=== PATIENT | female | born 1995 | race American Indian/Alaskan Native ===

== ENCOUNTER 2024-07-03 19:15 | Emergency (ER) | payer MEDICAID, SELFPAY ==
--- NOTE | 2024-07-03 19:25 | XR_ITS ---
Examination: Complete OB ultrasound greater than 14 weeks Date and time of exam: July 03, 2024 1935 hrs. Indications: No care, labor evaluation Findings: Viable intrauterine single fetus with single amniotic sac presentation cephalic spine maternal right Cardiac motion 140 BPM Placenta anterior grade 2 Umbilical cord insertion seen 3 vessel Amniotic fluid index 17.7 cm Cervix 3.4 cm Ovaries obscured by bowel gas. Composite estimated gestational age based on BPD, head circumference, abdominal circumference, femur length is 28 weeks 2 days Estimated weight 1139 g. Survey of intracranial anatomy, spinal anatomy, abdominal anatomy, four-chamber heart performed with no abnormalities identified. Impression: An intrauterine gestation cephalic presentation Estimated gestational age 28 weeks 2 days.
[2024-07-03 19:26] VITALS: BP 116/68; PULSE 102; RESP 18; TEMP 36.6; O2SAT 99
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
[2024-07-03 19:33] VITALS: RESP 18; O2SAT 97
[2024-07-03 20:38] LABS: Basophils # (Auto) 0.1 Thou/mm3 (0.0-0.2); Basophils % (Auto) 0 % (0-2.5); Eosinophils % (Auto) 0 % (0-10); Hematocrit 29.7 % (36.0-46.0); Immature Granulocytes % (Auto) 1 % (0-0); Immature Granulocytes Auto 0.11 Thou/mm3 (0.00-0.00); Lymphocytes # (Auto) 2.2 Thou/mm3 (1.0-4.8); Lymphocytes % (Auto) 14 % (10-50); Mean Corpuscular HGB Conc 33.7 g/dl (31.0-37.0); Mean Corpuscular Hemoglobin 32.3 pg (25.0-35.0); Mean Corpuscular Volume 96 fL (80-100); Monocytes # (Auto) 1.1 Thou/mm3 (0.0-0.8); Monocytes % (Auto) 7 % (0-12); Neutrophils # (Auto) 11.7 Thou/mm3 (1.8-7.7); Neutrophils % (Auto) 77 % (37-80); Nucleated Red Blood Cell % 0 /100 WBC (0); Platelet Count 391 Thou/mm3 (140-440); RDW Standard Deviation 44.8 fL (36.4-46.3); White Blood Count 15.2 Thou/mm3 (3.6-11.0)
[2024-07-03 21:02] LABS: Albumin, Serum 3.8 gm/dL (3.5-5.0); Albumin/Globulin Ratio 1.7 (1.2-2.2); Alkaline Phosphatase 77 U/L (46-116); Anion Gap 7 (7-16); Aspartate Amino Transferase 15 U/L (0-34); BUN/Creatinine Ratio 10 Ratio (12-20); Bilirubin,Total 0.2 mg/dL (0.3-1.2); Blood Urea Nitrogen 6 mg/dL (9-23); Calcium 8.3 mg/dL (8.3-10.6); Calcium (Corrected) 8.5 mg/dL (8.5-10.1); Carbon Dioxide 24.5 mMol/L (20.0-31.0); Chloride 106 mMol/L (98-107); Creatine Kinase 145 U/L (34-171); Creatinine (Component) 0.6 mg/dL (0.6-1.3); Estimated Creatinine Clearance 136.9 mL/min (>60); Globulin 2.2 gm/dL (2.3-3.5); Glucose 83 mg/dL (74-106); Osmolality,Calculated 270 (275-295); Potassium 4.1 mMol/L (3.4-5.1); Sodium 137 mMol/L (136-145); eGFR > 60 See Note
[2024-07-03 21:03] LABS: Collection Type, Urine Clean Catch
[2024-07-03 21:08] VITALS: BP 121/69; PULSE 90; RESP 17; TEMP 36.7; O2SAT 99
[2024-07-03 21:12] LABS: Alanine Aminotransferase 11 U/L (10-49)
[2024-07-03] MEDS: SODIUM CHLORIDE 0.9% 1000 ML 1,000 ML 999 ML IV (21:15)
[2024-07-03 21:20] LABS: Bilirubin,Urine Negative (Negative); Blood,Urine Negative (Negative); Clarity,Urine Turbid (Clear/Hazy); Color,Urine Lt-Yellow (Lt Yel-Yel); Glucose, Urine Trace (Negative); Ketones,Urine Negative (Negative); Leukocyte Esterase,Urine Negative (Negative); Nitrite,Urine Positive (Negative); PH,Urine 6.5 (5.0-7.0); Protein,Urine Negative (Neg - Trace); RBC,Urine 2 /hpf (0-3); Specific Gravity,Urine 1.008 (1.001-1.035); Squamous Epithelial Cell,Urine 1 /hpf (0-5); Urobilinogen,Urine Negative mg/dL (0.0-1.0); WBC,Urine 2 /hpf (0-5)
[2024-07-03 21:23] LABS: Culture Indicated,Urine Yes
== END 2024-07-03 23:30 | disposition home or self-care (01) ==
PROVIDERS: Registered Nurse General Practice; Emergency Provider Emergency Medicine
DX: O26.813 Pregnancy related exhaustion and fatigue, third trimester (principal); D72.829 Elevated white blood cell count, unspecified; Z3A.28 28 weeks gestation of pregnancy
CPT/HCPCS: 36415; 76805; 80053; 81001; 82550; 85025; 87086; 96360; 99284; J7030

== ENCOUNTER → 2024-07-05 05:15 | Emergency (ER) | payer MEDICAID, SELFPAY ==
[2024-07-05] VITALS (10 sets, daily range): BP systolic 103–134; BP diastolic 51–85; PULSE 83–111; RESP 15–100; TEMP 36.8–36.9; O2SAT 98–99; BMI 27.6
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
--- NOTE | 2024-07-05 03:39 | PC.NURSE ---
PT SENT TO OB FOR CLEARANCE FIRST
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
[2024-07-05 06:03] LABS: Basophils % (Auto) 0 % (0-2.5); Eosinophils % (Auto) 0 % (0-10); Hematocrit 28.5 % (36.0-46.0); Hemoglobin 9.7 g/dL (12.0-16.0); Immature Granulocytes % (Auto) 1 % (0-0); Immature Granulocytes Auto 0.07 Thou/mm3 (0.00-0.00); Lymphocytes # (Auto) 1.9 Thou/mm3 (1.0-4.8); Lymphocytes % (Auto) 13 % (10-50); Mean Corpuscular Hemoglobin 31.8 pg (25.0-35.0); Mean Corpuscular Volume 93 fL (80-100); Monocytes # (Auto) 0.9 Thou/mm3 (0.0-0.8); Monocytes % (Auto) 6 % (0-12); Neutrophils % (Auto) 80 % (37-80); Nucleated Red Blood Cell % 0 /100 WBC (0); Platelet Count 409 Thou/mm3 (140-440); RDW Standard Deviation 44.5 fL (36.4-46.3); Red Blood Count 3.05 Miln/mm3 (4.00-5.20)
[2024-07-05 06:26] LABS: Glucose Estimated Average 97 mg/dL (80-131)
[2024-07-05 06:34] LABS: Hepatitis B Surface Antigen Non Reactive (Non React); Rubella, IgG Antibody Reactive (Immune)
[2024-07-05 06:38] LABS: Syphilis Nonreactive (Nonreactive)
[2024-07-05 08:00] LABS: HIV (1&2) Antibody Rapid Non-Reactive
== END ==
LOC: S4SX 05:00 → SERX 05:21
PROVIDERS: Obstetrics & Gynecology; Emergency Provider Emergency Medicine
DX: Z02.89 Encounter for other administrative examinations (principal); O9A.212 Injury, poisoning and certain other consequences of external causes complicating pregnancy, second trimester; R10.9 Unspecified abdominal pain; O99.332 Smoking (tobacco) complicating pregnancy, second trimester; Z3A.27 27 weeks gestation of pregnancy; Z65.3 Problems related to other legal circumstances; F17.200 Nicotine dependence, unspecified, uncomplicated; W19.XXXA Unspecified fall, initial encounter; Y04.0XXA Assault by unarmed brawl or fight, initial encounter
CPT/HCPCS: 36415; 59025; 83036; 85025; 86703; 86762; 86780; 86850; 86870; 86900; 86901; 87340; 99281

== ENCOUNTER 2024-09-18 13:10 | Inpatient (IN) | payer MEDICAID, SELFPAY ==
[2024-09-18] VITALS (36 sets, daily range): BP systolic 90–121; BP diastolic 41–76; PULSE 68–110; RESP 12–99; TEMP 36.1–36.6; O2SAT 96–100; BMI 29.9
[2024-09-18 14:01] LABS: Basophils # (Auto) 0.1 Thou/mm3 (0.0-0.2); Basophils % (Auto) 0 % (0-2.5); Eosinophils % (Auto) 0 % (0-10); Hematocrit 29.2 % (36.0-46.0); Hemoglobin 9.9 g/dL (12.0-16.0); Immature Granulocytes % (Auto) 1 % (0-0); Immature Granulocytes Auto 0.14 Thou/mm3 (0.00-0.00); Lymphocytes # (Auto) 1.6 Thou/mm3 (1.0-4.8); Lymphocytes % (Auto) 7 % (10-50); Mean Corpuscular HGB Conc 33.9 g/dl (31.0-37.0); Mean Corpuscular Hemoglobin 28.1 pg (25.0-35.0); Mean Corpuscular Volume 83 fL (80-100); Monocytes # (Auto) 1.7 Thou/mm3 (0.0-0.8); Monocytes % (Auto) 7 % (0-12); Neutrophils # (Auto) 20.2 Thou/mm3 (1.8-7.7); Neutrophils % (Auto) 85 % (37-80); Nucleated Red Blood Cell % 0 /100 WBC (0); Platelet Count 387 Thou/mm3 (140-440); RDW Standard Deviation 45.4 fL (36.4-46.3); Red Blood Count 3.52 Miln/mm3 (4.00-5.20); White Blood Count 23.7 Thou/mm3 (3.6-11.0)
[2024-09-18 14:27] LABS: Fibrinogen 523 mg/dL (175-375); INR 0.9 (0.9-1.3); Partial Thromboplastin Time 30.3 Seconds (22.0-36.0); Prothrombin Time 9.8 Seconds (9.0-12.2)
[2024-09-18 14:30] LABS: Alanine Aminotransferase < 7 U/L (10-49); Albumin, Serum 3.6 gm/dL (3.5-5.0); Albumin/Globulin Ratio 1.4 (1.2-2.2); Alkaline Phosphatase 207 U/L (46-116); Anion Gap 6 (7-16); Aspartate Amino Transferase 12 U/L (0-34); BUN/Creatinine Ratio 10 Ratio (12-20); Bilirubin,Total 0.5 mg/dL (0.3-1.2); Blood Urea Nitrogen 7 mg/dL (9-23); Calcium 8.1 mg/dL (8.3-10.6); Calcium (Corrected) 8.4 mg/dL (8.5-10.1); Chloride 109 mMol/L (98-107); Creatinine (Component) 0.7 mg/dL (0.6-1.3); Globulin 2.5 gm/dL (2.3-3.5); Glucose 93 mg/dL (74-106); LDH (Lactate Dehydrogenase) 193 U/L (120-246); Osmolality,Calculated 269 (275-295); Sodium 136 mMol/L (136-145); Total Protein 6.1 gm/dL (5.7-8.2); Uric Acid 3.9 mg/dL (3.1-7.8); eGFR > 60 See Note
[2024-09-18 14:37] LABS: Syphilis Nonreactive (Nonreactive)
[2024-09-18] MEDS: RINGERS LACTATED 1000 ML 1,000 ML 100 ML IV (14:39)
[2024-09-18 14:41] LABS: Amphetamine/Metham Scrn,Ur OB Negative (Negative); Benzoylecgonine Screen, Ur OB Negative (Negative); Opiate Screen,Urine OB Negative (Negative); THC Screen,Urine OB Positive (Negative)
[2024-09-18 14:42] LABS: THC U Confirm* See Sep Rpt
[2024-09-18] MEDS: ceFAZolin/D5W 2 GM IV 2 GM/100 ML BAG IV ×2 (14:50→21:11)
[2024-09-18] MEDS: FAMOTIDINE INJ 10 MG/ML VIAL 2 ML 20 MG IV (14:50)
[2024-09-18 14:51] LABS: HIV (1&2) Antibody Rapid Non-Reactive
[2024-09-18] MEDS: AZITHROMYCIN INJ 500 MG in SODIUM CHLORIDE 0.9% 250 ML 250 ML 250 MG IV (15:10)
[2024-09-18] MEDS: OXYTOCIN in NS 20 units 20 UNIT/1,000 ML BAG 125 UNIT IV (16:30)
--- NOTE | 2024-09-18 16:41 | ESHP_ITS ---
Documentation for date of: 09/18/24 OB Labor/Induct. HPI History of Present Illness Chief complaint: Labor : 4 Para: 3 Term pregnancies: 3 pregnancies: 1 Living children: 3 History of Abortions: Spontaneous and Elective: 0 History of Vaginal deliveries: 0 History of sections: Yes (x3) History of : No SHERRY: 09/17/24 Gestational Age (weeks): 40 Gestational Age (days): 1 History of present illness: The patient is a 29-year-old with a history of x 3 who presented to triage reporting active labor. She was 40 weeks and 1 day by LMP. She has been incarcerated for 3 months. She stated she did get care at the residential. Before she was incarcerated, she did not have any care. No records were available on presentation. She stated that she had a history of x 3 in the past, one of which was documented here at 34 weeks. Patient stated she might have broken her water at 10:00 PM 09/18/2019. When she presented she was painfully jasiel and having some early decelerations and was consented for a repeat low-transverse section. Of note the patient states that she has a history of meth use, cocaine use and alcohol use. She has multiple ER visits here for ETOH and drug abuse. She denies using since incarcerated three months ago. She admits to daily marijuana and states that she has been home for three days and that is all she has used. History of Present Dating criteria: based on LMP only Adequate Care: No ( Pt incarcerated last 3 months, no [facility] records) Ultrasounds: none Medical complications: other (history of ETOH, cocaine, methamphetamine, and marijuana use. UDS + for marijuana.) Labs Maternal Blood Type: O Pos Labs: Unknown: RPR, Hepatitis B, Rubella Titre, HIV, Chlamydia, Gonorrhea, Herpes Type 1, Herpes Type 2, Group Beta Strep and Covid-19 Past Medical History Surgical History SURGICAL: Positive Section (x3) Meds Home Medications and Allergies Allergies Allergy/AdvReac Type Severity Reaction Status Date / Time No Known Allergies Allergy Verified 09/18/24 13:35 OB Exam Physical Exam Vital signs: Temp Pulse Resp BP Pulse Ox O2 Del Method 97.4 F 79 20 111/63 99 Room Air 09/18/24 16:05 09/18/24 13:44 09/18/24 13:44 09/18/24 13:44 09/18/24 14:38 09/18/24 13:44 OB Results Labs 09/18/24 13:30 09/18/24 13:30 Labs: Short CBC 09/18/24 Range/Units 13:30 WBC 23.7 H (3.6-11.0) Thou/mm3 Hgb 9.9 L (12.0-16.0) g/dL Hct 29.2 L (36.0-46.0) % Plt Count 387 (140-440) Thou/mm3 BMP 09/18/24 13:30 Sodium 136 Potassium 4.0 Chloride 109 H Carbon Dioxide 21.0 BUN 7 L Creatinine 0.7 Glucose 93 Calcium 8.1 L Liver Function 09/18/24 Range/Units 13:30 Total Bilirubin 0.5 (0.3-1.2) mg/dL AST 12 (0-34) U/L ALT < 7 L (10-49) U/L Alkaline Phosphatase 207 H (46-116) U/L Albumin 3.6 (3.5-5.0) gm/dL OB Assessment & Plan Assessment and Plan (1) Cannabis abuse: Status: Acute Assessment and plan: commissioner of relocation services consult post . (2) Active labor at term: Status: Acute (3) Previous section: Status: Acute Assessment and plan: Consented for an emergent low-transverse section. care scant. The risks of the procedure were discussed including risk of bleeding infection, transfusion, damage to other organsorgans.
[2024-09-18 17:00] LABS: Collection Type, Urine Clean Catch
--- NOTE | 2024-09-18 17:02 | OBDSUM_ITS ---
Data ([facility]) Data Hx Section: Yes (x3) Maternal Blood Type: O Pos Rubella Titre: Unknown RPR: Unknown Labs: Unknown: RPR, Hepatitis B, HIV, Chlamydia, Gonorrhea, Herpes Type 1, Herpes Type 2 and Group Beta Strep : 4 Term: 3 : 1 Livin Abortions: Spontaneous & Theraputic: 0 Delivery Data ([facility]) Labor Data Initiation of labor: Spontaneous Induction/Augmentation Agent: None ROM date: 09/18/24 ROM time: 15:02 Amniotic membrane rupture type: Artificial Amniotic fluid description: Particulate Meconium and Foul Odor Delivery Data EDC: 09/17/24 EDC calculated by:: LMP Date of arrival to unit: 09/18/24 Time of arrival to unit: 13:02 Onset of labor date: 09/18/24 Onset of labor time: 13:10 Complete dilation date: 09/18/24 Complete dilation time: 15:02 delivery date: 09/18/24 Mackey delivery time: 15:02 Gestational age (weeks): 40 Gestational age (days): 1 Placenta delivery date: 09/18/24 Placenta delivery time: 15:02 Stage 1 total time: Labor - Stage 1 Duration 1 hours and 52 minutes Delivered by: Angeline Lemus ([facility]) Delivery nurse: [facility] nurse: Christie Antony RN Window And Door Installer at delivery: Yes Support person(s) at delivery: none Other staff at delivery: Elissa Dubose from [facility], Mello SABA, Stewart MONTELONGO, substation maintenance technician Katherine Delivery Method Delivery: Delivery Type: Repeat Presentation: Vertex Position: OA Anesthesia Type Primary Anesthesia: Spinal Secondary Anesthesia: None Delivery Room Medications Intrapartum Medications: Antibiotics Other Intrapartum Medications: Yes Post Delivery Medications N/A: No Placenta Placenta Delivery: Spontaneous Placenta Cultures Obtained: No Placenta Sent for Examination: Yes Cord Sample: Cord Blood Obtained, Cord Gases Arterial and Cord Gases Venous EBL Estimated blood loss (ml): 400 Umbilical Cord Umbilical Vessels: 3 Nuchal Cord: None Body Cord: None Additional Procedures See details on op report Complications Complications: None Data ([place]) Mackey Data 's gender: Male weight (gms): 2920 g Weight (pounds): 59 lbs and 5.6 ozs 1 minute: 8 5 minutes: 9 Additional Comments Additional comments: weight 2920 g. Entered incorrectly and cannot be corrected up above. Corresponds to 6 pounds 7 ounces. Not 59 pounds.
[2024-09-18 17:05] LABS: Bacteria,Urine Rare; Bilirubin,Urine Negative (Negative); Blood,Urine Negative (Negative); Clarity,Urine Clear (Clear/Hazy); Color,Urine Yellow (Lt Yel-Yel); Culture Indicated,Urine Not Indicated; Glucose, Urine Negative (Negative); Ketones,Urine 1+ (Negative); Leukocyte Esterase,Urine Negative (Negative); Nitrite,Urine Negative (Negative); Protein,Urine Trace (Neg - Trace); RBC,Urine 1 /hpf (0-3); Squamous Epithelial Cell,Urine 1 /hpf (0-5); Urobilinogen,Urine Negative mg/dL (0.0-1.0); WBC,Urine < 1 /hpf (0-5)
--- NOTE | 2024-09-18 17:23 | PD.GYNPROC ---
Operative Note - ACID MIXER Procedure Date of procedure: 09/18/24 Procedure Performed: Repeat low-transverse Section Indication: The patient is a 29-year-old -1-0-3 with no care except in alf for the last 3 months who presented to labor and delivery in active labor. By her LMP, she was 40 and 1 sevenths weeks . She had a history of x 3 in the past. She was painfully jasiel on presentation regularly every 3 to 4 minutes.FHTs were category 1 with some variable decelerations with contractions. The patient stated she might have ruptured her bag of water at 10 PM on 03/04. She was consented for a repeat CS in labor. Pre-Op diagnosis: 1. IUP 40 1/7 weeks by LMP 2. Active labor 3. Previous CS x 3 4. Surgical staff Operation Date: 09/18/24 15:15 <No data on this case meets the specified criteria>
[2024-09-18] MEDS: GENTAMICIN/NS 80 MG IVPB 80 MG/50 ML PIGGYBACK 100 MG IV (17:54)
--- NOTE | 2024-09-18 18:21 | ESOP_ITS ---
Operative Note - ELECTROPLATER HELPER Procedure Date of procedure: 09/18/24 Procedure Performed: Repeat low-transverse section Indication: The patient is a 29-year-old -1-0-3 status post x 3 who presented to labor and delivery in active labor. She was 40 1/7 weeks by her last menstrual period. She had very little care. She was incarcerated for 3 months of her she was only home for the last 2-3 days. We have no records available. According to ER visits, she has a history of cocaine abuse, alcohol abuse, methamphetamine abuse, and marijuana abuse. She states that since her incarceration she is only used marijuana the last 2 days. In triage she was found to be painfully jasiel every 3 to 4 minutes. heart tones were category 1. The baby did have some variable decelerations with contractions. She stated she might of broken her bag at 10 PM 09/17/2024. Pre-Op diagnosis: 1. Intrauterine at 40 and 1 sevenths weeks 2. Active labor 3. Previous x 3 4. Possible prolonged rupture of membranes 5. Inadequate care 6. History of polysubstance abuse Post-Op diagnosis: Same Anesthesia type: Spinal Procedure description: After obtaining informed consent, the patient was brought back to the operating room and spinal anesthesia administered. She was then prepped and draped in the dorsal supine position with a leftward tilt in a normal sterile fashion. A Edmondson catheter was inserted into the patient's bladder. The patient was given 2 g of Ancef by anesthesia. A Pfannenstiel skin incision was made with a scalpel through the patient's prior scar and carried down to the underlying fascia. The fascia was incised the midline, and the fascial incision extended laterally using Grande scissors. The superior aspect of the fascia was grasped with Iveth clamps and the underlying rectus muscles dissected off using blunt and sharp dissection. This was repeated in the inferior aspect the incision. The rectus muscle was in the midline and entered sharply with a scalpel. This was extended superiorly and inferiorly with good visualization of the bladder. The bladder blade was inserted and the uterus was incised in the low transverse fashion above the bladder reflection with a scalpel. The uterine incision was extended laterally using blunt dissection with the surgeon's fingers. The bag suresh was ruptured and foul smelling green particulate fluid was obtained. The bladder blade was removed and the infant was delivered atraumatically. The cord was clamped and cut and the was handed off to the waiting pediatric staff. Cord blood was collected. Cord gases were sent. The placenta was then manually removed and the uterus was exteriorized and cleared of all clots and debris. The uterine incision was closed with 0 Monocryl in a running motion. Excellent hemostasis was noted. The uterus was returned to the patient's abdominal cavity and copious irrigation carried out with warm normal saline. The uterine is reexamined several times and noted to hemostatic. After ensuring the rectus muscles were hemostatic, these were approximated in the midline using a running suture of 0 Monocryl. The fascia was closed with 0 Vicryl in a running fashion. The subcutaneous tissues were irrigated and found to be hemostatic. These were reapproximated using a running suture of 3-0 plain. The skin was closed with a subcuticular suture of 4-0 Monocryl. The patient tolerated the procedure well, sponge ,lap, instrument and needle counts were correct x 2. The patient went to the recovery area awake and in stable condition. The baby went to the NICU for observation secondary to possible exposure to chorioamnionitis. Fluids: crystalloid Fluid amount (mL): 3,000 Urine output (mL): 200 Specimen: other (Placenta) Implants: None Estimated blood loss (ml): 400 Findings: Liveborn male in the OA presentation with no nuchal cord and with thick meconium .Apgars were 8 and 9 weight was 2920 g or approximately 6 pounds 7 ounces the placenta was complete spontaneous meconium stained otherwise grossly normal. The fluid had a very foul odor suggestive of chorioamnionitis. Patient's fallopian tubes and uterus appeared grossly normal. The lower uterine segment was thin but there is very little scar tissue present in the patient's abdomen. Complications: none Surgical staff Operation Date: 09/18/24 15:15 <No data on this case meets the specified criteria> Stewart Leon CRNA Diagnosis Discharge Diagnosis (1) Previous section: Status: Acute (2) Active labor at term: Status: Acute (3) Cannabis abuse: Status: Acute (4) Chorioamnionitis, delivered, current hospitalization: Status: Acute Problem List Completed Was Problem List Reviewed/Reconciled?: Yes
[2024-09-18] MEDS: CLINDAMYCIN 900MG IVPB 900 MG in PRE-MIXED 1 BAG 50 MG IV (18:25)
[2024-09-18 20:21] LABS: Hepatitis B Surface Antigen Non Reactive (Non React); Rubella, IgG Antibody Reactive (Immune)
[2024-09-18] MEDS: HYDROcodone/APAP 5/325 TABLET 2 TAB PO (23:50)
[2024-09-19 00:30] VITALS: BP 124/74; PULSE 74; RESP 18; TEMP 36.6; O2SAT 95
[2024-09-19] MEDS: CLINDAMYCIN 900MG IVPB 900 MG in PRE-MIXED 1 BAG 50 MG IV ×3 (01:12→17:53)
[2024-09-19] MEDS: OXYTOCIN in NS 20 units 20 UNIT/1,000 ML BAG 125 UNIT IV (01:19)
[2024-09-19 04:00] VITALS: BP 110/67; PULSE 81; RESP 17; TEMP 36.3; O2SAT 96
[2024-09-19] MEDS: GENTAMICIN/NS 80 MG IVPB 80 MG/50 ML PIGGYBACK 100 MG IV ×2 (05:08→17:00)
[2024-09-19] MEDS: HYDROcodone/APAP 5/325 TABLET 2 TAB PO ×2 (05:51→14:07)
[2024-09-19] MEDS: ceFAZolin/D5W 2 GM IV 2 GM/100 ML BAG IV ×2 (05:51→22:06)
[2024-09-19 06:10] LABS: Basophils # (Auto) 0.1 Thou/mm3 (0.0-0.2); Basophils % (Auto) 0 % (0-2.5); Eosinophils % (Auto) 0 % (0-10); Immature Granulocytes % (Auto) 1 % (0-0); Immature Granulocytes Auto 0.12 Thou/mm3 (0.00-0.00); Lymphocytes # (Auto) 1.8 Thou/mm3 (1.0-4.8); Lymphocytes % (Auto) 9 % (10-50); Mean Corpuscular Hemoglobin 28.5 pg (25.0-35.0); Mean Corpuscular Volume 84 fL (80-100); Monocytes # (Auto) 1.2 Thou/mm3 (0.0-0.8); Monocytes % (Auto) 6 % (0-12); Neutrophils # (Auto) 17.1 Thou/mm3 (1.8-7.7); Neutrophils % (Auto) 84 % (37-80); Nucleated Red Blood Cell % 0 /100 WBC (0); Platelet Count 338 Thou/mm3 (140-440); RDW Standard Deviation 46.2 fL (36.4-46.3); Red Blood Count 2.98 Miln/mm3 (4.00-5.20); White Blood Count 20.3 Thou/mm3 (3.6-11.0)
[2024-09-19 06:26] LABS: Hemoglobin 8.5 g/dL (12.0-16.0)
[2024-09-19 08:30] VITALS: BP 123/77; PULSE 80; RESP 20; TEMP 36.2; O2SAT 88
[2024-09-19 08:35] VITALS: RESP 18; O2SAT 95
--- NOTE | 2024-09-19 08:47 | XR_ITS ---
Examination: AP chest single view TECHNIQUE: Sitting portable AP chest single view Exam date and time: September 19, 2024 0857 hours INDICATIONS: Shortness of breath today. FINDINGS: Pneumonia left base Normal heart size Right lung clear IMPRESSION: Pneumonia left base, differential would include aspiration pneumonia
[2024-09-19 10:00] LABS: Chlamydia trachomatis PCR Negative (Not Detect); Neisseria Gonorrhoeae DNA PCR Negative (Not Detect); Trichomonas Positive (Negative)
--- NOTE | 2024-09-19 11:31 | ESPR_ITS ---
RE: DENG QUINTANILLA : 1995 DATE OF SERVICE: 09/19/2024 S: Postoperative day #1, the patient reports cough and some shortness of breath with exertion. She denies any chest pain or palpitations. She reports she does not feel dizzy or lightheaded. She denies any excessive vaginal bleeding. She is tolerating a regular diet. She is voiding without difficulty. O: Vital Signs: Blood pressure 123/77, heart rate is 80, respirations 18, temperature is 97.2, and pulse ox is 95% on 2 L nasal cannula. Lungs: Scattered rhonchi and wheezes. Heart: Regular rate and rhythm. Abdomen: Dressing dry and intact. Fundus is firm. Extremities: Nontender. No edema. LABORATORY DATA: Hemoglobin pre-delivery is 9.9, post-delivery is 8.5. A: 1. Postop day #1, status post delivery. 2. Chorioamnionitis. 3. Respiratory Infection 4. Anemia but hemodynamically stable with no ongoing bleeding. P: The patient continues on Ancef, gentamicin, and clindamycin. Chest x-ray for shortness of breath and pulse ox low on room air. Remove dressing, encourage ambulation, support, and social service support. DT: 09:15:41 TT: 11:30:00 Ref: [id number] - TID: [id number] [facility]
[2024-09-19 12:05] VITALS: BP 137/79; PULSE 80; RESP 18; TEMP 36.3; O2SAT 96
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
[2024-09-19 20:00] VITALS: BP 128/80; PULSE 90; RESP 19; TEMP 36.8; O2SAT 97
[2024-09-20] MEDS: CLINDAMYCIN 900MG IVPB 900 MG in PRE-MIXED 1 BAG 50 MG IV ×2 (01:19→09:20)
[2024-09-20 03:58] VITALS: BP 125/77; PULSE 97; RESP 18; TEMP 36.3; O2SAT 99
[2024-09-20] MEDS: GENTAMICIN/NS 80 MG IVPB 80 MG/50 ML PIGGYBACK 100 MG IV (05:20)
[2024-09-20 06:06] LABS: Basophils # (Auto) 0.1 Thou/mm3 (0.0-0.2); Basophils % (Auto) 0 % (0-2.5); Eosinophils % (Auto) 0 % (0-10); Hematocrit 23.7 % (36.0-46.0); Immature Granulocytes % (Auto) 1 % (0-0); Immature Granulocytes Auto 0.12 Thou/mm3 (0.00-0.00); Lymphocytes # (Auto) 1.7 Thou/mm3 (1.0-4.8); Lymphocytes % (Auto) 10 % (10-50); Mean Corpuscular HGB Conc 34.2 g/dl (31.0-37.0); Mean Corpuscular Hemoglobin 28.2 pg (25.0-35.0); Mean Corpuscular Volume 83 fL (80-100); Monocytes # (Auto) 0.8 Thou/mm3 (0.0-0.8); Monocytes % (Auto) 5 % (0-12); Neutrophils # (Auto) 14.3 Thou/mm3 (1.8-7.7); Neutrophils % (Auto) 84 % (37-80); Nucleated Red Blood Cell % 0 /100 WBC (0); Platelet Count 362 Thou/mm3 (140-440); Red Blood Count 2.87 Miln/mm3 (4.00-5.20); White Blood Count 16.9 Thou/mm3 (3.6-11.0)
[2024-09-20] MEDS: ceFAZolin/D5W 2 GM IV 2 GM/100 ML BAG IV (06:13)
[2024-09-20] MEDS: HYDROcodone/APAP 5/325 TABLET 2 TAB PO ×3 (06:19→23:06)
[2024-09-20 06:32] LABS: Hemoglobin 8.1 g/dL (12.0-16.0)
[2024-09-20 08:00] VITALS: BP 124/74; PULSE 91; RESP 18; TEMP 36.4; O2SAT 95
[2024-09-20 11:10] VITALS: BP 116/77; PULSE 82; RESP 17; TEMP 36.7; O2SAT 95
--- NOTE | 2024-09-20 11:47 | PD.LDPPPRG ---
Subjective Subjective Interval history: Delivery type: , chorioamnionitis/pneumonia on triple antibiotics, dropping patient without any care Patient doing well this morning. No acute complaints. Ambulating, tolerating p.o. and voiding without difficulty. HTN/Pre-Eclampsia screen: No chest pain, shortness of breath, headache, visual changes, epigastric or right upper quadrant pain. Breast-feeding, lochia diminishing. Bowel: Flatus+/ BM+ Exam Vital Signs Temp Pulse Resp BP Pulse Ox O2 Del Method O2 Flow Rate 98.1 F 82 17 116/77 95 Room Air 2 09/20/24 11:10 09/20/24 11:10 09/20/24 11:10 09/20/24 11:10 09/20/24 11:10 09/20/24 11:10 09/19/24 08:35 Constitutional Constitutional: no acute distress Routine HEENT Exam Head: Present normocephalic and atraumatic Eye: Present EOMI and PERRL ENT: Present mucous membranes moist Routine Neck Exam Neck: Present supple and trachea midline Routine Respiratory Exam Respiratory: Present chest non-tender, lungs clear, normal breath sounds and no resp distress Routine Cardiovascular Exam Cardiovascular: Present RRR Routine Abdominal Exam Abdominal: Present soft and normoactive bowel sounds Routine Extremities Exam Extremities: Present full ROM Routine Skin Exam Skin: Present intact, dry and warm Routine Neurological Exam Neurological: Present alert, oriented X3 and CN II-XII intact Routine Psychiatric Exam Psychiatric: Present normal affect and normal thought process Objective Labs 09/20/24 04:45 09/18/24 13:30 Labs: Laboratory Results - last 24 hr 09/20/24 04:45 WBC 16.9 H RBC 2.87 L Hgb 8.1 L Hct 23.7 L MCV 83 MCH 28.2 MCHC 34.2 RDW Std Deviation 46.0 Plt Count 362 Neut % (Auto) 84 H Lymph % (Auto) 10 [place] % (Auto) 5 Eos % (Auto) 0 Baso % (Auto) 0 Neut # (Auto) 14.3 H Lymph # (Auto) 1.7 [place] # (Auto) 0.8 Eos # (Auto) 0.0 Baso # (Auto) 0.1 Immature Gran # (Auto) 0.12 H Absolute Nucleated RBC 0.00 Immature Gran % 1 H Nucleated RBC % 0 Assessment & Plan Problem List (1) Previous section: Status: Acute Assessment and plan: PPD/POD#2 1. Continue routine care 2. Transition to PO meds. 3. Encourage to ambulate/ breast-feed 4. Anticipate discharge home tomorrow as she was a late delivery (2) Active labor at term: Status: Acute (3) Cannabis abuse: Status: Acute (4) Chorioamnionitis, delivered, current hospitalization: Status: Acute Assessment and plan: Afebrile now Time Spent With Patient Time: Total time spent is greater than 50% in coordination of care (as documented) at patient's floor/unit and/or counseling patient: Time with patient: less than 15 minutes
[2024-09-20 19:45] VITALS: BP 134/83; PULSE 94; TEMP 36.7; O2SAT 94
[2024-09-20 23:15] VITALS: BP 125/74; PULSE 95; RESP 16; TEMP 36.7; O2SAT 96
[2024-09-21] VITALS (11 sets, daily range): BP systolic 113–138; BP diastolic 72–86; PULSE 83–101; RESP 14–18; TEMP 36.6–36.9; O2SAT 94–100
--- NOTE | 2024-09-21 07:49 | PD.LDPPPRG ---
Subjective Subjective Interval history: The patient is a 29-year-old G4 now P4004 status POD #3 repeat in labor. Of note she had no care and was incarcerated until 3 days prior to admission. She is postop day #3 today. Of note, patient's blood pressure kept dropping during surgery and she was given a large amount of IV fluids by anesthesia. She was given at least 3 L of fluid and 500cc of albumin. Today the patient is has coarse breath sounds and is coughing. They diagnosed her with a postop pneumonia. I do think she also could be fluid overloaded. I ordered Lasix x 2 and med nebs 3 times daily. If patient does go home she will go home on a Z-Ronan. Consider repeat chest x-ray today. Repeat CBC. Exam Vital Signs Temp Pulse Resp BP Pulse Ox O2 Del Method O2 Flow Rate 97.9 F 96 16 122/78 96 Room Air 2 09/21/24 03:50 09/21/24 03:50 09/21/24 03:50 09/21/24 03:50 09/21/24 03:50 09/21/24 03:50 09/19/24 08:35 Narrative Exam Patient is alert and oriented x 3 her color appears good. She is coughing and having trouble bringing up sputum. She states when she does bring it up it is clear to white no green sputum Routine Respiratory Exam Respiratory: Present rhonchi Routine Abdominal Exam Abdominal: Present soft and wound (Incision clean dry and intact, fundus firm) Objective Labs 09/20/24 04:45 09/18/24 13:30 Assessment & Plan Problem List (1) Previous section: Status: Acute (2) Active labor at term: Status: Acute (3) Cannabis abuse: Status: Acute (4) Chorioamnionitis, delivered, current hospitalization: Status: Acute (5) Pneumonia: Status: Acute Assessment and plan: ZPACK. Recheck CBC. Ordered Lasix for possible fluid overload. Re check chest x-ray later today. Ordered Med-Neb treatments 3 times daily. Time Spent With Patient Time: Total time spent is greater than 50% in coordination of care (as documented) at patient's floor/unit and/or counseling patient: Time with patient: less than 15 minutes
[2024-09-21 08:29] LABS: Basophils # (Auto) 0.1 Thou/mm3 (0.0-0.2); Basophils % (Auto) 0 % (0-2.5); Eosinophils # (Auto) 0.2 Thou/mm3 (0.0-0.5); Eosinophils % (Auto) 1 % (0-10); Hematocrit 28.7 % (36.0-46.0); Hemoglobin 9.5 g/dL (12.0-16.0); Immature Granulocytes % (Auto) 1 % (0-0); Immature Granulocytes Auto 0.12 Thou/mm3 (0.00-0.00); Lymphocytes # (Auto) 2.4 Thou/mm3 (1.0-4.8); Lymphocytes % (Auto) 16 % (10-50); Mean Corpuscular HGB Conc 33.1 g/dl (31.0-37.0); Mean Corpuscular Hemoglobin 27.9 pg (25.0-35.0); Mean Corpuscular Volume 84 fL (80-100); Monocytes # (Auto) 0.7 Thou/mm3 (0.0-0.8); Monocytes % (Auto) 5 % (0-12); Neutrophils # (Auto) 11.2 Thou/mm3 (1.8-7.7); Neutrophils % (Auto) 77 % (37-80); Nucleated Red Blood Cell % 0 /100 WBC (0); Platelet Count 484 Thou/mm3 (140-440); RDW Standard Deviation 46.8 fL (36.4-46.3); White Blood Count 14.6 Thou/mm3 (3.6-11.0)
[2024-09-21] MEDS: PRENATAL VITAMIN/FE FUM/FA TABLET 1 TAB PO (08:32)
[2024-09-21] MEDS: AZITHROMYCIN 250 MG TABLET 500 MG PO (08:32)
[2024-09-21] MEDS: HYDROcodone/APAP 5/325 TABLET 2 TAB PO (08:32)
[2024-09-21] MEDS: FUROSEMIDE INJ 10 MG/ML VIAL 2 ML 20 MG IVP ×2 (08:33→18:14)
[2024-09-21] MEDS: ALBUTEROL RT 2.5 MG/0.5 ML NEBU INH ×2 (11:11→22:30)
--- NOTE | 2024-09-21 18:01 | ESPR_ITS ---
Subjective Subjective Interval history: Patient is a 29-year-old G4 now P4004 postop day #3 status post repeat C- section. Patient is doing better this afternoon as far as her cough and breathing goes. I did order breathing treatments and she has had one albuterol med nebulizer so far and she stated it opened up her lungs. She also was given Lasix 40 mg x 1 and stated that she went to the restroom a few times and this has helped. I started her on p.o. azithromycin. Will see how she feels tomorrow I am going to repeat a chest x-ray in the morning. Her CBC is back revealing a hemoglobin of 9.5 and her white count is down to 14. Exam Vital Signs Temp Pulse Resp BP Pulse Ox O2 Del Method O2 Flow Rate 98.5 F 94 16 138/86 H 94 L Room Air 2 09/21/24 16:10 09/21/24 16:10 09/21/24 16:10 09/21/24 16:10 09/21/24 16:10 09/21/24 16:10 09/19/24 08:35 Narrative Exam Patient is resting comfortably in bed. She still has a productive cough Objective Labs 09/21/24 08:18 09/18/24 13:30 Labs: Laboratory Results - last 24 hr 09/18/24 09/21/24 13:30 08:18 WBC 14.6 H RBC 3.40 L Hgb 9.5 L Hct 28.7 L MCV 84 MCH 27.9 MCHC 33.1 RDW Std Deviation 46.8 H Plt Count 484 H D Neut % (Auto) 77 Lymph % (Auto) 16 [place] % (Auto) 5 Eos % (Auto) 1 Baso % (Auto) 0 Neut # (Auto) 11.2 H Lymph # (Auto) 2.4 [place] # (Auto) 0.7 Eos # (Auto) 0.2 Baso # (Auto) 0.1 Immature Gran # (Auto) 0.12 H Absolute Nucleated RBC 0.00 Immature Gran % 1 H Nucleated RBC % 0 Crossmatch See Detail Assessment & Plan Problem List (1) Previous section: Status: Acute (2) Active labor at term: Status: Acute (3) Cannabis abuse: Status: Acute (4) Chorioamnionitis, delivered, current hospitalization: Status: Acute (5) Pneumonia: Problem details: Breathing treatments. Given Lasix. Started p.o. azithromycin. Will order a repeat chest x-ray in the morning. Status: Acute Time Spent With Patient Time: Total time spent is greater than 50% in coordination of care (as documented) at patient's floor/unit and/or counseling patient: Time with patient: less than 15 minutes
[2024-09-21] MEDS: IBUPROFEN TAB 400 MG TABLET 800 MG PO (18:14)
[2024-09-22] MEDS: HYDROcodone/APAP 5/325 TABLET 1 TAB PO (00:05)
[2024-09-22 03:45] VITALS: BP 110/67; PULSE 89; RESP 14; TEMP 36.6; O2SAT 96
[2024-09-22 06:29] VITALS: BP 112/73; PULSE 93
[2024-09-22] MEDS: FUROSEMIDE INJ 10 MG/ML VIAL 2 ML 20 MG IVP (06:29)
[2024-09-22 06:39] VITALS: PULSE 69
[2024-09-22] MEDS: ALBUTEROL RT 2.5 MG/0.5 ML NEBU INH (06:39)
[2024-09-22 06:40] VITALS: PULSE 86; RESP 18; O2SAT 99
[2024-09-22] MEDS: SODIUM CHLORIDE RT SOL 0.9% 3 ML NEBU INH (06:40)
[2024-09-22 07:45] VITALS: BP 121/69; PULSE 99; RESP 17; TEMP 36.6; O2SAT 96
--- NOTE | 2024-09-22 08:05 | XR_ITS ---
Examination: PA lateral chest 2 views TECHNIQUE: Upright PA lateral chest 2 views Date and time: September 22, 2024 0905 hours Comparison 12/20/2024 INDICATIONS: , pneumonia left base on chest film August 2024 FINDINGS: Significant pneumonia left base remains Right lung clear. Normal heart size IMPRESSION: Significant pneumonia left base remains
[2024-09-22] MEDS: PRENATAL VITAMIN/FE FUM/FA TABLET 1 TAB PO (08:30)
[2024-09-22] MEDS: AZITHROMYCIN 250 MG TABLET 500 MG PO (08:30)
[2024-09-22] MEDS: HYDROcodone/APAP 5/325 TABLET 2 TAB PO (08:35)
--- NOTE | 2024-09-22 09:02 | PD.LDPPPRG ---
Subjective Subjective Interval history: Postop day #3. Patient feels much better. She reports less shortness of breath. She denies any chest pain or palpitations. She denies any dizziness or lightheadedness. She is tolerating a regular diet and voiding without difficulty and passing flatus. Exam Vital Signs Temp Pulse Resp BP Pulse Ox O2 Del Method O2 Flow Rate 97.9 F 99 17 121/69 96 Room Air 2 09/22/24 07:45 09/22/24 07:45 09/22/24 07:45 09/22/24 07:45 09/22/24 07:45 09/22/24 07:45 09/19/24 08:35 Routine Respiratory Exam Comments: Clear to auscultation bilaterally Routine Cardiovascular Exam Comments: Regular rate and rhythm Routine Abdominal Exam Comments: Incision clear and intact fundus is firm nondistended Routine Extremities Exam Comments: Nontender or edema Objective Labs 09/21/24 08:18 09/18/24 13:30 Labs: Laboratory Results - last 24 hr 09/18/24 13:30 Crossmatch See Detail Assessment & Plan Problem List (1) Previous section: Status: Acute Assessment and plan: Postop day #3 status post delivery Discharge home Continue Zithromax for walking pneumonia Follow-up in the office in 1 week Discharge instructions given (2) Active labor at term: Status: Acute (3) Cannabis abuse: Status: Acute (4) Chorioamnionitis, delivered, current hospitalization: Status: Acute (5) Pneumonia: Problem details: Breathing treatments. Given Lasix. Started p.o. azithromycin. Will order a repeat chest x-ray in the morning. Status: Acute Time Spent With Patient Time: Total time spent is greater than 50% in coordination of care (as documented) at patient's floor/unit and/or counseling patient:
--- NOTE | 2024-09-22 09:11 | ESDS_ITS ---
DS: Providers Provider Date of admission: 09/18/24 13:25 Primary care physician: Physician No Primary/Family Admitting Provider: Angeline Lemus [facility] ([facility]) Attending Provider on Admission: Artem Martínez MD Consults: 09/18/24 16:58 Referral Routine Comment: 09/21/24 07:47 Referral Continuous Nebulizer Routine Comment: POD #2 CS, smoker, CXR pneumonia Instructions: albuterol med nebulizer TID Reason for Consult: SOB, post op pneumonia. Smoker Attending Provider on DC: Wander Benson MD Discharging Provider: Wander Benson MD DS: Diagnosis Problem List Completed Was Problem List Reviewed/Reconciled?: Yes Summary/Hosp Course Brief History: The patient is a 29-year-old with a history of x 3 who presented to triage reporting active labor. She was 40 weeks and 1 day by LMP. She has been incarcerated for 3 months. She stated she did get care at the group home. Before she was incarcerated, she did not have any care. No records were available on presentation. She stated that she had a history of x 3 in the past, one of which was documented here at 34 weeks. Patient stated she might have broken her water at 10:00 PM 09/18/2019. When she presented she was painfully jasiel and having some early decelerations and was consented for a repeat low-transverse section. Of note the patient states that she has a history of meth use, cocaine use and alcohol use. She has multiple ER visits here for ETOH and drug abuse. She denies using since incarcerated three months ago. She admits to daily marijuana and states that she has been home for three days and that is all she has used. Peripartum Data Delivery Method: Low Transverse Episiotomy Description: None Procedures: Procedures Operation Date: 09/18/24 15:15 Actual Procedure Side Surgeon p in OB Not Applicable Angeline Lemus ([facility])MD Time Spent with Patient Time attestation: Total time spent providing and/or coordinating discharge services: Exam Vital Signs Temp Pulse Resp BP Pulse Ox O2 Del Method O2 Flow Rate 97.9 F 99 17 121/69 96 Room Air 2 09/22/24 07:45 09/22/24 07:45 09/22/24 07:45 09/22/24 07:45 09/22/24 07:45 09/22/24 07:45 09/19/24 08:35 Discharge Plan Plan Patient Disposition: HOME (Self Care) Patient condition on transfer: Stable Prescriptions/Referrals Prescriptions/Med Rec: New azithromycin 500 mg tablet 500 mg PO QDAY 5 Days Qty: 5 0RF hydrocodone-acetaminophen 5-325 mg tablet 1 tab PO Q6H MDD 4 PRN (Reason: pain) Qty: 20 0RF No Action PNV 119-iron fum-folic acid 29 mg iron- 1 mg tablet 1 tab PO QDAY Qty: 30 0RF Referrals: No Primary/Family,Physician [Primary Care Provider] - Patient/Caregiver Discharge Instructions Discharge Activity: activity as tolerated Other Discharge Activity Instructions:: Follow up office 1 week Education Materials: Breast Care After , C Section Dc Print Language: Montenegrin Stand Alone Forms: Jerilyn Award Info., Patient Portal Info Letter Discharge Order Discharge Orders: Discharge (Routine); Ordered 09/22/24 Ordered By: Wander Benson Planned Discharge Date 09/22/24
== END 2024-09-22 10:23 | disposition home or self-care (01) | DRG 540 ==
LOC: S4SX 13:47 → S4NX 16:39 → S4SX 09-19 07:09
PROVIDERS: Specialist; Admitting Provider Obstetrics & Gynecology; Visit Provider Obstetrics & Gynecology
PROC: 10D00Z1 Extraction of Products of Conception, Low, Open Approach (ICD-10-PCS; CPT 59514; principal; 2024-09-18 15:00)
DX: O34.211 Maternal care for low transverse scar from previous cesarean delivery (principal); O48.0 Post-term pregnancy; Z37.0 Single live birth; Z3A.40 40 weeks gestation of pregnancy; O76 Abnormality in fetal heart rate and rhythm complicating labor and delivery; O99.52 Diseases of the respiratory system complicating childbirth; O99.324 Drug use complicating childbirth; O77.0 Labor and delivery complicated by meconium in amniotic fluid; O99.02 Anemia complicating childbirth; O41.1230 Chorioamnionitis, third trimester, not applicable or unspecified; J18.9 Pneumonia, unspecified organism; F12.10 Cannabis abuse, uncomplicated
CPT/HCPCS: 36415; 59025; 71045; 71046; 80053; 80307; 81001; 83615; 84550; 85025; 85384; 85610; 85730; 86703; 86762; 86780; 86850; 86870; 86900; 86901; 86921; 86922; 87081; 87340; 87491; 87591; 87661; 94640; 94664; A4649; J0456; J0689; J1580; J1938; J2274; J2371; J2405; J2590; J3010; J3490; J7050; J7120; P9045; S0077; A9270; J0736; J2270